=== PATIENT | female | born 1960 | race Caucasian/White ===

== ENCOUNTER 2017-11-15 03:04 | Emergency (ER) | payer BC ==
[~2017-11-15] VITALS: Ht 152.4 cm; Wt 62.1 kg
[2017-11-15 03:10] VITALS: BP 116/74
[2017-11-15] MEDS ORDERED: BACI/NEOM/POLY B OINT PKT 1 UDPKT PACKET TP ONE (03:30)
[2017-11-15] MEDS ORDERED: CEPHALEXIN MONOHYDRATE 500 MG CAPSULE PO ONE ×2 (03:30→03:36)
[2017-11-15] MEDS ORDERED: LIDOCAINE HCL/PF 1% 30 ML VIAL TP ONE (03:30)
[2017-11-15] MEDS ORDERED: LIDOCAINE 1% INJ 50 ML MDV IJ ONE (03:35)
--- NOTE | 2017-11-15 04:21 | NUR ---
DR. MORRELL AT BEDSIDE FOR I&D.
== END 2017-11-15 04:38 | disposition home or self-care (01) ==
LOC: ER 03:10
DX: L03.116 Cellulitis of left lower limb (principal); L02.612 Cutaneous abscess of left foot; Z90.710 Acquired absence of both cervix and uterus
CPT/HCPCS: A4606; A6402; A6407; J3490; Z7610

== ENCOUNTER 2017-11-17 03:06 | Emergency (ER) | payer BC ==
[~2017-11-17] VITALS: Ht 152.4 cm; Wt 61.7 kg
[2017-11-17 03:08] VITALS: BP 118/71
== END 2017-11-17 03:40 | disposition home or self-care (01) ==
LOC: ER 03:07
DX: L02.612 Cutaneous abscess of left foot (principal); E03.9 Hypothyroidism, unspecified; Z90.710 Acquired absence of both cervix and uterus; Z98.890 Other specified postprocedural states
CPT/HCPCS: 99282; A4606; Z7610

== ENCOUNTER 2023-08-03 18:32 | Emergency (ER) | payer BC ==
[~2023-08-03] VITALS: Ht 152.4 cm; Wt 62.1 kg
[2023-08-03 18:40] VITALS: TEMP 98.2
[2023-08-03 20:32] LABS: BASOPHILS # (AUTO) 0.1 K/uL (0.0-0.2); BASOPHILS % (AUTO) 0.9 % (0.0-2.0); EOSINOPHILS # (AUTO) 0.1 K/uL (0.0-0.7); HEMATOCRIT 39 % (33-45); HEMOGLOBIN 12.9 g/dL (11.5-14.8); LYMPHOCYTES # (AUTO) 1.1 K/uL (0.8-4.8); LYMPHOCYTES % (AUTO) 16.7 % (20.0-44.0); MEAN CORPUSCULAR HEMOGLOBIN 31 PG (26.0-33.0); MEAN CORPUSCULAR HGB CONC 33 g/dl (31.0-36.0); MEAN CORPUSCULAR VOLUME 93 fL (82-100); MONOCYTES # (AUTO) 0.5 K/uL (0.1-1.30); MONOCYTES % (AUTO) 7.7 % (2.0-12.0); NEUTROPHILS % (AUTO) 72.7 % (43.0-81.0); PLATELET COUNT (AUTO) 200 K/uL (150-450); RED BLOOD CELL COUNT(AUTO) 4.16 MIL/uL (4.0-5.2); RED CELL DISTRIBUTION WIDTH 13.2 % (11.5-15.0); WHITE BLOOD COUNT (AUTO) 6.9 K/uL (4.3-11.0)
[2023-08-03 21:13] LABS: CALCIUM, SERUM 9.2 mg/dL (8.5-10.1); CARBON DIOXIDE 26 mmol/L (21-32); CHLORIDE 105 mmol/L (98-107); CREATININE 1.8 mg/dL (0.6-1.3); GLUCOSE 89 mg/dL (74-106); POTASSIUM 4.6 mmol/L (3.5-5.1); SODIUM SERUM 140 mmol/L (136-145); UREA NITROGEN, BLOOD 29 mg/dL (7-18)
[2023-08-03 21:43] VITALS: BP 123/97; O2SAT 97
[2023-08-04] MEDS ORDERED: PROP10TA68 PO (07:57)
[2023-08-04] MEDS ORDERED: PARO30TA4 PO (07:57)
[2023-08-04] MEDS ORDERED: BUPR-54 PO (07:57)
[2023-08-04] MEDS ORDERED: AMLO-212 PO (07:57)
[2023-08-04] MEDS ORDERED: THYR60TA2 PO (07:57)
[2023-08-04] MEDS ORDERED: LITH300T PO (07:57)
[2023-08-04] MEDS ORDERED: ASEN10TA9 PO (07:57)
[2023-08-04] MEDS ORDERED: LISI40TA13 PO (07:57)
== END 2023-08-03 21:59 | disposition home or self-care (01) ==
LOC: ER 18:37
DX: H53.2 Diplopia (principal); I10 Essential (primary) hypertension; F32.A Depression, unspecified; J45.909 Unspecified asthma, uncomplicated; Z90.710 Acquired absence of both cervix and uterus; Z60.2 Problems related to living alone
CPT/HCPCS: 36415; 70450-TC; 80048-TC; 84484-TC; 85025-TC

== ENCOUNTER 2023-08-04 04:27 | Emergency (ER) | payer BC, OTHER ==
[~2023-08-04] VITALS: Ht 144.8 cm; Wt 61.7 kg
[2023-08-04] MEDS: IV NS 0.9% 1,000 ML BAG IV ONE (04:58)
[2023-08-04 05:20] LABS: BASOPHILS % (AUTO) 0.2 % (0.0-2.0); EOSINOPHILS # (AUTO) 0.1 K/uL (0.0-0.7); EOSINOPHILS % (AUTO) 0.9 % (0.0-6.0); HEMATOCRIT 41 % (33-45); HEMOGLOBIN 13.5 g/dL (11.5-14.8); LYMPHOCYTES # (AUTO) 0.8 K/uL (0.8-4.8); LYMPHOCYTES % (AUTO) 12.3 % (20.0-44.0); MEAN CORPUSCULAR HEMOGLOBIN 31 PG (26.0-33.0); MEAN CORPUSCULAR HGB CONC 33 g/dl (31.0-36.0); MEAN CORPUSCULAR VOLUME 94 fL (82-100); MONOCYTES # (AUTO) 0.4 K/uL (0.1-1.30); MONOCYTES % (AUTO) 6.4 % (2.0-12.0); NEUTROPHILS # (AUTO) 5.3 K/uL (1.8-8.9); NEUTROPHILS % (AUTO) 80.2 % (43.0-81.0); PLATELET COUNT (AUTO) 209 K/uL (150-450); RED BLOOD CELL COUNT(AUTO) 4.39 MIL/uL (4.0-5.2); RED CELL DISTRIBUTION WIDTH 13.4 % (11.5-15.0); WHITE BLOOD COUNT (AUTO) 6.6 K/uL (4.3-11.0)
[2023-08-04 05:33] LABS: SERUM AMMONIA 2 umol/L (11-32)
[2023-08-04 05:46] LABS: ALANINE AMINOTRANSFERASE 41 U/L (12-78); ALBUMIN 3.8 g/dL (3.4-5.0); ALKALINE PHOSPHATASE 79 U/L (46-116); ASPARTATE AMINOTRANSFERASE 25 U/L (15-37); BILIRUBIN,DIRECT 0.1 mg/dL (0.0-0.2); BILIRUBIN,TOTAL 0.5 mg/dL (0.2-1.0); CALCIUM, SERUM 9.2 mg/dL (8.5-10.1); CREATININE 1.7 mg/dL (0.6-1.3); GLUCOSE 113 mg/dL (74-106); TOTAL PROTEIN, SERUM 7.3 g/dL (6.4-8.2); UREA NITROGEN, BLOOD 26 mg/dL (7-18)
[2023-08-04 05:56] LABS: ACETAMINOPHEN <10 ug/ml (10-30); ALCOHOL, BLOOD < 3 mg/dL (0-10); SALICYLATE 2.3 mg/dL (2.8-20.0)
[2023-08-04 06:01] LABS: CARBON DIOXIDE 25 mmol/L (21-32); CHLORIDE 106 mmol/L (98-107); POTASSIUM 4.5 mmol/L (3.5-5.1); SODIUM SERUM 142 mmol/L (136-145); THYROID STIMULATING HORMONE 2.204 uIU/mL (0.358-3.74)
[2023-08-04 06:27] LABS: APPEARANCE,URINE CLEAR (CLEAR); BILIRUBIN,URINE NEGATIVE (NEGATIVE); BLOOD, URINE NEGATIVE Ery/uL (NEGATIVE); COLOR,URINE YELLOW (YELLOW); KETONES,URINE NEGATIVE (NEGATIVE); LEUKOCYTE ESTERASE ,URINE NEGATIVE (NEGATIVE); NITRITE, URINE NEGATIVE (NEGATIVE); PROTEIN,URINE NEGATIVE (NEGATIVE); UGLUCOSE NEGATIVE (NEGATIVE); UROBILINOGEN,URINE 0.2 EU/dL (0.2)
[2023-08-04] MEDS ORDERED: BUPR-54 PO (07:57)
[2023-08-04] MEDS ORDERED: AMLO-212 PO (07:57)
[2023-08-04] MEDS ORDERED: ASEN10TA9 PO (07:57)
[2023-08-04] MEDS ORDERED: PARO30TA4 PO (07:57)
[2023-08-04] MEDS ORDERED: THYR60TA2 PO (07:57)
[2023-08-04] MEDS ORDERED: LISI40TA13 PO (07:57)
[2023-08-04] MEDS ORDERED: LITH300T PO (07:57)
[2023-08-04] MEDS ORDERED: PROP10TA68 PO (07:57)
[2023-08-04 13:43] VITALS: BP 128/70; TEMP 97.8; O2SAT 100
== END 2023-08-04 13:43 | disposition short-term general hospital (02) ==
LOC: ER 04:28
DX: R27.0 Ataxia, unspecified (principal); E86.0 Dehydration; I10 Essential (primary) hypertension; R94.31 Abnormal electrocardiogram [ECG] [EKG]; Z86.79 Personal history of other diseases of the circulatory system; J45.909 Unspecified asthma, uncomplicated; F41.9 Anxiety disorder, unspecified; F32.A Depression, unspecified; Z91.011 Allergy to milk products; Z91.018 Allergy to other foods; Z60.2 Problems related to living alone; Z20.822 Contact with and (suspected) exposure to COVID-19
CPT/HCPCS: 99285; 96360; 93005; 82140; 85025; 80048; 83605; 80076; 81003; 36415; 80178; 84443; 84484 ×3; 87426; 80143; 80320; 80179; J7030; G0480

== ENCOUNTER 2024-02-01 10:35 | Emergency (ER) | payer OTHER ==
[~2024-02-01] VITALS: Ht 152.4 cm; Wt 57.6 kg
[~2024-02-01 10:35] MED LIST: AMLO-212 PO; ASEN10TA9 PO; BUPR-54 PO; LISI40TA13 PO; LITH300T PO; PARO30TA4 PO; PROP10TA68 PO; THYR60TA2 PO
[2024-02-01] MEDS: ACETAMINOPHEN ES 500 MG TABLET PO ONE (10:54)
[2024-02-01 11:00] VITALS: BP 111/67; TEMP 98.5; O2SAT 97
== END 2024-02-01 12:42 | disposition home or self-care (01) ==
LOC: ER 11:27
DX: S00.81XA Abrasion of other part of head, initial encounter (principal); I10 Essential (primary) hypertension; J45.909 Unspecified asthma, uncomplicated; F41.9 Anxiety disorder, unspecified; F32.A Depression, unspecified; Z79.890 Hormone replacement therapy; Z90.710 Acquired absence of both cervix and uterus; W01.0XXA Fall on same level from slipping, tripping and stumbling without subsequent striking against object, initial encounter; Y93.89 Activity, other specified; Y92.89 Other specified places as the place of occurrence of the external cause; Y99.8 Other external cause status
CPT/HCPCS: 70450-TC; 70486-TC